=== PATIENT | male | born 1995 | race Caucasian/White ===

== ENCOUNTER 2017-04-26 14:49 | Emergency (ER) | payer OTHER ==
[2017-04-26] MEDS ORDERED: BACITRACIN 500 U/GM OIN TOP ONE ×2 (15:15→15:17)
[2017-04-26] MEDS ORDERED: TDAP VACCINE 0.5 ML SUS IM ONE ×2 (15:16→15:17)
[2017-04-26 16:36] VITALS: BP 165/73; PULSE 103; RESP 18; TEMP 98; O2SAT 97
== END 2017-04-26 15:35 | disposition home or self-care (01) | DRG 605 ==
LOC: ED 14:49
DX: S61.412A Laceration without foreign body of left hand, initial encounter (principal); W22.8XXA Striking against or struck by other objects, initial encounter
CPT/HCPCS: 90471; 90715; 99282

== ENCOUNTER 2019-02-13 13:16 | Emergency (ER) | payer OTHER ==
[2019-02-13 13:56] VITALS: TEMP 98.1
[2019-02-13] MEDS ORDERED: LORAZEPAM 0.5 MG TAB PO ONE (13:57)
[2019-02-13 14:05] LABS: BASOPHILS % (AUTO) 2 % (0-3); EOSINOPHILS % (AUTO) 1 % (0-9); HEMATOCRIT 49 % (39-53); HEMOGLOBIN 16.3 gm/dl (13.5-17.7); LYMPHOCYTES % (AUTO) 28.9 % (10-50); MEAN CORPUSCULAR HEMOGLOBIN 27.4 pg (27.0-32.0); MEAN CORPUSCULAR HGB CONC 33.4 gm/dl (32.0-36.0); MEAN CORPUSCULAR VOLUME 82 fL (80-100); MONOCYTES % (AUTO) 6.7 % (0-12); NEUTROPHILS % (AUTO) 61.8 % (37-80)
[2019-02-13] MEDS ORDERED: LORAZEPAM 0.5 MG TAB ONE (14:12)
[2019-02-13 14:14] LABS: INR 0.97 (0.86-1.12)
[2019-02-13 14:31] LABS: ALBUMIN 4.2 gm/dl (3.4-5.0); ALKALINE PHOSPHATASE 85 IU/L (46-116); ALT 65 IU/L (14-63); AST 25 IU/L (15-37); BILIRUBIN,TOTAL 0.5 mg/dl (0.2-1.0); BLOOD UREA NITROGEN 15 mg/dl (7-18); CALCIUM 8.8 mg/dl (8.5-10.1); CARBON DIOXIDE 28.8 mEq/L (21-32); CHLORIDE 103 mMol/L (98-107); CREATININE 1.04 mg/dl (0.80-1.30); GLUCOSE 134 mg/dl (74-106); POTASSIUM 3.6 mMol/L (3.5-5.1); SODIUM 140 mMol/L (136-145); TOTAL PROTEIN 7.8 gm/dl (6.4-8.2); TROP I < 0.017 ng/ml (0.000-0.056)
[2019-02-13 18:52] VITALS: BP 145/87; PULSE 96; RESP 24; O2SAT 99
== END 2019-02-13 17:00 | disposition home or self-care (01) | DRG 204 ==
LOC: ED 13:16
DX: R06.02 Shortness of breath (principal); F41.9 Anxiety disorder, unspecified; R07.9 Chest pain, unspecified
CPT/HCPCS: 36415; 71045; 80053; 84484; 85025; 85610; 93005; 99283; 99285; A9270-GY